=== PATIENT | female | born 1960 | race Caucasian/White ===

== ENCOUNTER 2020-04-20 10:29 | Outpatient (CLI) | payer OTHER, SELFPAY ==
[2020-04-20 10:43] LABS: Hematocrit 39.1 % (37.0-47.0); Mean Corpuscular HGB Conc 33.2 g/dl (32-36); Mean Corpuscular Hemoglobin 31.3 pg (26-34); Mean Corpuscular Volume 94.2 fl (80-100); Mean Platelet Volume 8.9 fl (7.4-10.4); Platelet Count Result 241 k/mm3 (150-375); Red Blood Count 4.15 M/mm3 (4.2-5.4); Red Cell Distribution Width 12.8 % (11.5-14.5); White Blood Count 4.7 K/mm3 (4.5-10.0)
[2020-04-20 10:55] LABS: Alanine Aminotransferase 15 U/L (4-35); Albumin Level 4.2 g/dL (3.5-5.1); Alkaline Phosphatase 59 U/L (38-126); Anion Gap 5 mmol/L (8-16); Aspartate Amino Transferase 30 U/L (14-36); Bilirubin,Total 0.9 mg/dL (0.2-1.3); Blood Urea Nitrogen 21 mg/dL (7-17); Calcium 9.3 mg/dL (8.4-10.2); Carbon Dioxide 31 mmol/L (22-30); Chloride 103 mmol/L (98-107); Cholesterol 219 mg/dL (0-200); Estimated Glomerular Filt Rate > 60; Glucose 109 mg/dL (65-105); HDL Direct 72 mg/dL; Sodium 139 mmol/L (137-145); Triglycerides 127 mg/dL (<150)
[2020-04-20 11:06] LABS: LDL Cholesterol Direct 117 mg/dL
[2020-04-20 11:18] LABS: Hemoglobin A1C 5.3 % (<5.7)
== END 2020-04-20 10:30 | disposition home or self-care (01) ==
PROVIDERS: PCP Family Medicine; Visit Provider Family Medicine
DX: K27.9 Peptic ulcer, site unspecified, unspecified as acute or chronic, without hemorrhage or perforation (principal); R73.03 Prediabetes; Z51.81 Encounter for therapeutic drug level monitoring; Z79.899 Other long term (current) drug therapy
CPT/HCPCS: 36415; 80053; 80061; 83036; 85027

== ENCOUNTER 2020-12-04 13:50 | Outpatient (CLI) | payer OTHER, SELFPAY ==
--- NOTE | ~2020-12-04 | MM_ITS ---
EXAMINATION: MM screening talia BI w chandni HISTORY: Screening mammogram, family history of breast cancer in her mother. TECHNIQUE: Craniocaudal and mediolateral oblique 3-D tomosynthesis images were obtained and synthetic 2-D images were generated. CAD analysis was submitted and interpreted. COMPARISON: 06/23/2016 BREAST PARENCHYMAL COMPOSITION: There are scattered areas of fibroglandular density. FINDINGS: There is no evidence of suspicious mass, calcification, or architectural distortion to sugg est malignancy in either breast. There has been no suspicious interval change. IMPRESSION: 1. No mammographic evidence of malignancy. 2. Recommend routine screening mammography in one year. BI-RADS Category 1: Negative Reviewed, dictated and finalized at location A.
== END 2020-12-04 13:51 | disposition home or self-care (01) ==
PROVIDERS: PCP Family Medicine; Visit Provider Family Medicine
DX: Z12.31 Encounter for screening mammogram for malignant neoplasm of breast (principal)
CPT/HCPCS: 77063; 77067

== ENCOUNTER 2021-03-12 01:09 | Day surgery (SDC) | payer OTHER, SELFPAY ==
[2021-02-26 14:26] VITALS: BMI 27.5
--- NOTE | 2021-03-11 09:51 | WPDANESEPPF ---
Anes - Initial Pre Proc Eval Procedure: Operation Date: 03/12/21 11:15 Proposed Procedures p Esophagogastroduodenoscopy - Raj Ortega MD Date/Time: 03/11/21 09:51 Surgeon: Raj Ortega MD Pre Op Diagnosis: gastric outlet obstruction, epigastric pain Patient Data Age: 61 Gender: F Height: 1.65 m Weight: 75 kg Allergies Allergy/AdvReac Type Severity Reaction Status Date / Time Penicillins Allergy Unknown Skin Verified 03/12/21 10: Reaction sulfamethizole Allergy Unknown Skin Verified 03/12/21 10: Reaction tomato Allergy Unknown Skin Verified 03/12/21 10: Reaction trimethoprim Allergy Unknown rash Verified 03/12/21 10:21 lisinopril AdvReac Mild cough Verified 03/12/21 10:21 Home Medications Medication Instructions Recorded Confirmed Type cetirizine 10 mg tablet 10 mg PO DAILY 04/24/19 03/12/21 History telmisartan 80 mg tablet 80 mg PO DAILY #90 tablet 09/30/20 03/12/21 Rx esomeprazole magnesium 40 mg 40 mg PO DAILY #90 cap 10/23/20 03/12/21 Rx capsule,delayed release sucralfate 1 gram tablet 1 g PO Q4H PRN #90 tablet 10/23/20 03/12/21 Rx naltrexone 50 mg tablet See Rx Instructions .ROUTE 12/02/20 03/12/21 Rx .COMPLEX #90 tablet ondansetron HCl 4 mg tablet 4 mg PO Q8H PRN #30 tablet 02/26/21 02/26/21 Rx sertraline 25 mg PO DAILY 02/26/21 03/12/21 History Patient hx anesthesia problems: none Family hx anesthesia problems: none Results Review: All pre-operative results and documents have been reviewed as part of the pre-operative evaluation. [facility] Past Medical History Medical History (Updated 03/11/21 @ 09:51 by Josh Robles DO) Alcoholism and drug addiction in family Anxiety Breast cancer screening Gastric polyp Hypertension Obesity (BMI 30.0-34.9) Vasomotor rhinitis Surgical History Surgical History (Updated 03/11/21 @ 09:51 by Josh Robles DO) History of appendectomy History of cholecystectomy Family History Family History Sibling Family history of migraine headaches Family history of rheumatoid arthritis Acute myocardial infarction Mother Cerebrovascular accident Family history of Alzheimer's disease Family history of malignant neoplasm of breast in first degree relative Father Family history of lung disease Family history of heart disease in male family member before age 55 Grandparent Family history of lung cancer Family history of malignant neoplasm of breast Other Family history of allergic disorder Family history of cardiovascular disease Family history of kidney disease Social History Social History (Updated 02/21/21 @ 10:43 by Romelia Buckner [facility]) Smoking packs per day: 0.5 Smoking cigarettes per day: 10.0 Years smoked: 1 Smoking pack-years: 0.50 Smoking status: Former smoker Smoking end date: 02/26/86 Alcohol intake: current Living arrangements: with family Spiritual care concerns: No Anes - Eval Final PreProcedure Day of Procedure 03/11/21 09:51 Patient weight: overweight Heart: regular rate and rhythm Lungs: clear to auscultation and normal air movement Airway: Mallampati scale class II Neurological: alert and oriented Last oral intake: >/= 8 hours ASA classification: II Emergent: no Anesthetic plan: proceed Anesthesia type and monitoring: general GIVS and standard monitoring Results Review: All pre-operative results and documents have been reviewed as part of the pre-operative evaluation. Informed Consent: The patient's anesthetic plan and its attendant risks and benefits were discussed with the patient/family/POA. Questions were solicited and answers provided to the satisfaction of the patient/family/POA.
[2021-03-12 10:22] VITALS: BP 131/74; PULSE 52; RESP 18; TEMP 36.6; O2SAT 100
[2021-03-12] MEDS: LACTATED RINGERS 1,000 ML 150 ML IV CONT (10:32)
[2021-03-12] MEDS: ONDANSETRON INJ 4 MG/2 ML VIAL IV PUSH (10:38)
--- NOTE | 2021-03-12 10:41 | PM.HPGS ---
History of Present Illness History of Present Illness Consent: Risks, benefits, and alternatives have been discussed and questions answered. Patient agrees to proceed with procedure. Chief complaint: gastric outlet obstruction, epigastric pain Narrative: Brisa Post is a 61 year old female with persistent vomiting daily for the past 2 months. This began when she was out Anusol and thought that she had gotten dehydrated. Her symptoms however have persisted. She has lost about 10 lb during this period of time. She denies dysphagia Review of Systems Review of Systems: All systems reviewed & are unremarkable except as noted in HPI and below PMFSH Past Medical History Medical History Alcoholism and drug addiction in family Anxiety Breast cancer screening Gastric polyp Hypertension Obesity (BMI 30.0-34.9) Vasomotor rhinitis Surgical History Surgical History History of appendectomy History of cholecystectomy Family History Family History Sibling Family history of migraine headaches Family history of rheumatoid arthritis Acute myocardial infarction Mother Cerebrovascular accident Family history of Alzheimer's disease Family history of malignant neoplasm of breast in first degree relative Father Family history of lung disease Family history of heart disease in male family member before age 55 Grandparent Family history of lung cancer Family history of malignant neoplasm of breast Other Family history of allergic disorder Family history of cardiovascular disease Family history of kidney disease Social History Social History Smoking packs per day: 0.5 Smoking cigarettes per day: 10.0 Years smoked: 1 Smoking pack-years: 0.50 Smoking status: Former smoker Smoking end date: 02/26/86 Alcohol intake: current Living arrangements: with family Spiritual care concerns: No Meds Home Medications and Allergies Home Medications Medication Instructions Recorded Confirmed Type cetirizine 10 mg tablet 10 mg PO DAILY 04/24/19 03/12/21 History telmisartan 80 mg tablet 80 mg PO DAILY #90 tablet 09/30/20 03/12/21 Rx esomeprazole magnesium 40 mg 40 mg PO DAILY #90 cap 10/23/20 03/12/21 Rx capsule,delayed release sucralfate 1 gram tablet 1 g PO Q4H PRN #90 tablet 10/23/20 03/12/21 Rx naltrexone 50 mg tablet See Rx Instructions .ROUTE 12/02/20 03/12/21 Rx .COMPLEX #90 tablet ondansetron HCl 4 mg tablet 4 mg PO Q8H PRN #30 tablet 02/26/21 02/26/21 Rx sertraline 25 mg PO DAILY 02/26/21 03/12/21 History Allergies Allergy/AdvReac Type Severity Reaction Status Date / Time Penicillins Allergy Unknown Skin Verified 03/12/21 10:21 Reaction sulfamethizole Allergy Unknown Skin Verified 03/12/21 10:21 Reaction tomato Allergy Unknown Skin Verified 03/12/21 10:21 Reaction trimethoprim Allergy Unknown rash Verified 03/12/21 10:21 lisinopril AdvReac Mild cough Verified 03/12/21 10:21 Vital Signs Vital Signs - 24 hr 03/12/21 10:22 Temperature 36.6 C Pulse Rate 52 L Respiratory Rate 18 Blood Pressure 131/74 Pulse Oximetry 100 Exam Const: General: alert Orientation/consciousness: patient oriented x3 Resp: Auscultation: clear to auscultation bilaterally Cardio: Rhythm: regular rhythm GI: GI Palp: Yes Soft to palpation and No Tenderness to palpation present (GI) Neuro: General: patient oriented x3 Assessment and Plan Assessment and plan (1) Nausea and vomiting: Code(s): R11.2 - Nausea with vomiting, unspecified Status: Acute Assessment and Plan: EGD with possible biopsy or dilatation or cautery.
[2021-03-12 11:28] VITALS: BP 102/59; PULSE 51; RESP 16; O2SAT 100
[2021-03-12 11:38] VITALS: BP 107/59; PULSE 49; RESP 14; O2SAT 100
[2021-03-12 11:48] VITALS: BP 129/73; PULSE 47; RESP 15; O2SAT 100
[2021-03-12 11:58] VITALS: BP 140/80; PULSE 45; RESP 15; O2SAT 100
[2021-03-12] MEDS: diphenhydrAMINE HCl INJ 50 MG/ML VIAL 25 MG IV PUSH (12:03)
--- NOTE | 2021-03-12 12:04 | SUR.PHASEII ---
pt become very nauseated and vomited x 3. states this is how she feels at home sometimes. co some abd discomfort, states similiar to the way she feels at home. dr lee ann willingham aware, benadryl [address] anderson ordered 25 mg of fentanyl to help with discomfort but pt refused. olga orozco, ordered pt to have famotidine [address] nance confirmed orders.
[2021-03-12 12:08] VITALS: BP 128/76; PULSE 46; RESP 22; O2SAT 100
[2021-03-12] MEDS: SCOPOLAMINE 1.5 MG PATCH TRANSDERM (12:20)
[2021-03-12] MEDS: FAMOTIDINE 20 MG/2 ML VIAL IV PUSH (12:20)
--- NOTE | 2021-03-12 12:43 | SUR.OPER ---
1125: DR MULLIGAN MADE AWARE ONLY 2 POLYPS RETRIEVED AND 1 UNRETRIEVED. NO NEW ORDERS.
== END 2021-03-12 12:34 | disposition home or self-care (01) ==
PROVIDERS: PCP Family Medicine; Visit Provider Internal Medicine Gastroenterology
PROC: 0DJ08ZZ Inspection of Upper Intestinal Tract, Via Natural or Artificial Opening Endoscopic (ICD-10-PCS; CPT 43235; principal; 2021-03-12 11:15)
DX: K21.9 Gastro-esophageal reflux disease without esophagitis (principal); K31.7 Polyp of stomach and duodenum; I10 Essential (primary) hypertension; F41.9 Anxiety disorder, unspecified; Z87.891 Personal history of nicotine dependence
CPT/HCPCS: 43239; 43251; 87081; 88305; A9270; J1200; J1630; J2405; J2550; J2704; J7120

== ENCOUNTER 2021-03-21 13:31 | Outpatient (CLI) | payer OTHER, SELFPAY ==
--- NOTE | ~2021-03-21 | CT_ITS ---
EXAMINATION: CT abdomen pelvis w con INDICATION: Nausea and vomiting, weight loss TECHNIQUE: Computed tomographic images of the abdomen and pelvis were obtained after the administrati on of 100 cc of Omnipaque 350 intravenous contrast. The dose-length product (DLP) was 567.55 mGy-cm. Automated exposure control and iterative reconstruction technique were employed. COMPARISON: 05/12/2004 FINDINGS: Minimal dependent atelectasis is present in the lung bases. The heart size is normal. A chr onic 4 mm nodule of the right lower lobe is consistent with old granulomatous disease. The gallbladde r is surgically absent. There is mild enlargement of the common bile duct and central intrahepatic du cts which is likely due to post cholecystectomy state. The liver, spleen, pancreas, and adrenal gland s are normal. A surgical clip is present in the stomach at the site of prior biopsy. There is a 1.9 c m cyst of the left kidney upper pole. The right kidney is unremarkable. There is calcified atheroscle rosis of the aorta and many of the other arteries. No pathologically enlarged abdominal or pelvic lym ph nodes are identified. The endometrial thickness measures up to 10 mm which can be normal and an as ymptomatic postmenopausal patient. There is mild lumbar spondylosis. There is a tiny fat-containing u mbilical hernia. There is no free intraperitoneal gas or evidence of bowel obstruction. IMPRESSION: 1. No CT correlate for the patient's symptoms. Reviewed, dictated and finalized at location A.
[2021-03-21 13:51] LABS: Estimated Glomerular Filt Rate > 60
== END 2021-03-21 13:32 | disposition home or self-care (01) ==
PROVIDERS: PCP Family Medicine; Visit Provider Internal Medicine Gastroenterology
DX: R10.9 Unspecified abdominal pain (principal); R11.0 Nausea; R11.10 Vomiting, unspecified
CPT/HCPCS: 74177; Q9967

== ENCOUNTER 2022-12-17 08:15 | Emergency (ER) | payer OTHER, SELFPAY ==
[2022-12-17 08:24] VITALS: BP 108/77; PULSE 68; RESP 16; TEMP 36.1; O2SAT 99
[2022-12-17 08:25] VITALS: BP 108/77; PULSE 68; RESP 16; TEMP 36.1; O2SAT 99
--- NOTE | 2022-12-17 08:39 | ED.EYEPROB ---
HPI - Eye Problem General Chief complaint: Eye Problems Stated complaint: EYE REDNESS Time Seen by Provider: 12/17/22 08:40 Source: patient Mode of arrival: ambulatory Limitations: no limitations History of Present Illness HPI Narrative: 62-year-old female presents complaint of redness to right eye for 2 days. No vision changes. Patient wears daily contacts. Denies trauma or foreign body. Also reports sinus congestion, pressure for 10 days. Concerned she has bacterial conjunctivitis from sinus infection. Afebrile. All systems reviewed and negative except as noted above. Related Data Home Medications Medication Instructions Recorded Confirmed cetirizine 10 mg tablet (Zyrtec) 10 mg PO DAILY 04/24/19 12/17/22 sertraline 50 mg tablet 50 mg PO ONCE 04/24/22 12/17/22 Allergies Allergy/AdvReac Type Severity Reaction Status Date / Time Penicillins Allergy Unknown Skin Verified 12/17/22 08:24 Reaction sulfamethizole Allergy Unknown Skin Verified 12/17/22 08:24 Reaction tomato Allergy Unknown Skin Verified 12/17/22 08:24 Reaction trimethoprim Allergy Unknown rash Verified 12/17/22 08:24 metformin AdvReac Intermediate Abdominal Verified 12/17/22 08:24 Pain lisinopril AdvReac Mild cough Verified 12/17/22 08:24 Review of Systems Review of Systems: CONSTITUTIONAL: Denies fever, chills, or sweats. EYES: Reports right high redness, sticky discharge. ENT: reports rhinorrhea, congestion, sinus pressure. Denies sore throat, or otalgia. CARDIOVASCULAR: Denies chest pain, palpitations, or edema. RESPIRATORY: Denies cough or dyspnea. GASTROINTESTINAL: Denies abdominal pain, nausea, vomiting, or diarrhea. GENITOURINARY: Denies dysuria or hematuria. SKIN: Denies rash or itching. MUSCULOSKELETAL: Denies back pain, joint pain, or myalgia. NEUROLOGIC: Denies headache, numbness, or weakness. PSYCHIATRIC: Denies anxiety or depression. All other systems reviewed are negative, except as documented in HPI. [facility] Past Medical History Medical History Alcoholism and drug addiction in family Anxiety Breast cancer screening Gastric polyp Hypertension Obesity (BMI 30.0-34.9) Vasomotor rhinitis Surgical History Surgical History History of appendectomy History of cholecystectomy Family History Family History Sibling Family history of migraine headaches Family history of rheumatoid arthritis Acute myocardial infarction Mother Cerebrovascular accident Family history of Alzheimer's disease Family history of malignant neoplasm of breast in first degree relative Father Family history of lung disease Family history of heart disease in male family member before age 55 Grandparent Family history of lung cancer Family history of malignant neoplasm of breast Other Family history of allergic disorder Family history of cardiovascular disease Family history of kidney disease Social History Social History Smoking packs per day: 0.5 Smoking cigarettes per day: 10.0 Years smoked: 1 Smoking pack-years: 0.50 Smoking status: Former smoker Smoking end date: 02/26/86 Alcohol intake: current Lack of Transportation: No Lack of Food: Never True Current Housing: I Have Housing Concerned About Future Housing: No Difficulty Paying Gas/Electric Bills: No Difficulty Paying for Meds: No Currently Unemployed: Decline to Answer Education: Decline to Answer Difficulty w/ Childcare or Family Care: Decline to Answer Living arrangements: with family Spiritual care concerns: No Comments At time of signature, agree with nursing past medical, surgical, social and family history. There is no relevant family history pertinent to the presenting complaint. Exam Narrative: GEN
== END 2022-12-17 08:59 | disposition home or self-care (01) ==
PROVIDERS: Emergency Provider Nurse Practitioner Family; PCP Family Medicine
DX: H10.31 Unspecified acute conjunctivitis, right eye (principal); J01.90 Acute sinusitis, unspecified; Z87.891 Personal history of nicotine dependence; I10 Essential (primary) hypertension; F41.9 Anxiety disorder, unspecified; E66.9 Obesity, unspecified; Z68.27 Body mass index [BMI] 27.0-27.9, adult
CPT/HCPCS: 99213; A9270; G0463

== ENCOUNTER 2024-01-15 07:34 | Outpatient (CLI) | payer OTHER, MEDICARE, SELFPAY ==
--- NOTE | ~2024-01-15 | MM_ITS ---
EXAMINATION: MM screening talia BI w chandni HISTORY: Screening TECHNIQUE: Craniocaudal and mediolateral oblique 3-D tomosynthesis images were obtained and synthetic 2-D images were generated. CAD analysis was submitted and interpreted. COMPARISON: Comparison to multiple prior studies sequentially, with oldest reviewed study dated 06/23. BREAST PARENCHYMAL COMPOSITION: Dense: The breasts are heterogeneously dense, which may obscure small masses FINDINGS: The left breast is stable without evidence for malignancy. There are asymmetries centered i n the mid outer aspect of the right breast. The left breast is stable without evidence for malignancy . IMPRESSION: 1. Right breast asymmetries. 2. Additional mammographic views and possible breast ultrasound are recommended. BI-RADS Category 0: Incomplete: Needs additional imaging evaluation. Reviewed, dictated and finalized at location B. IMPRESSION: 1. Right breast asymmetries. 2. Additional mammographic views and possible breast ultrasound are recommended . BI-RADS Category 0: Incomplete: Needs additional imaging evaluation.
--- NOTE | ~2024-01-15 | DEXA_ITS ---
Bone Density Report Name: SONIYA PERDUE Age: 64 Sex: Female Ethnicity: White Date of : 1960 Indication: postmenopausal; screening for osteoporosis; parental hip fracture; Referring Provider: AYDEE BEY Study: Bone densitometry was performed. Exam Date: January 15, 2024 Accession number: [id number] Bone Density: Region BMD T-score Z-score Classification AP Spine(L1-L4) 1.040 -0.1 1.7 Normal Femoral Neck (Left) 0.727 -1.1 0.4 Osteopenia Total Hip (Left) 0.936 0.0 1.2 Normal Femoral Neck (Right) 0.740 -1.0 0.5 Normal Total Hip (Right) 0.967 0.2 1.4 Normal Total Hip Mean 0.952 0.1 1.3 Normal World Health Organization criteria for BMD impression classify patients as: Normal (T-score at or above -1.0), Osteopenia (T-score between -1.0 and -2.5), or Osteoporosis (T-score at or below -2.5). 10-year Fracture Risk(1): Major Osteoporotic Fracture 16% Hip Fracture 0.7% Reported Risk Factors: [place] (), Neck BMD=0.727, BMI=27.9, parental fracture (1) FRAX(R) Version 3.08. Fracture probability calculated for an untreated patient. Fracture probability may be lower if the patient has received treatment. Previous Exams: Region Exam Age BMD T-score BMD Change BMD Change Date g/cm2 vs Baseline vs Previous Total Hip(Left) 01/15/2024 64 0.936 0.0 0.014 (1.5%) 0.014 (1.5%) 06/23/2016 56 0.923 -0.2 Total Hip(Right) 01/15/2024 64 0.967 0.2 0.061 (6.8%)* 0.061 (6.8%)* 06/23/2016 56 0.905 -0.3 *Denotes significance at 95% confidence level, LSC for Total Hip = 0.027 g/cm2 Clinical Information Provided by Patient: Parent has had a hip fracture Patient maximum height was 66 Menopause Age: 49 No regular weight bearing exercise Drinks caffeinated beverages Onset of menses at age 12 Number of children 3 Impression: The patient has low bone mass, based on the Left Femoral Neck T-score. The patient has an estimated ten-year risk of hip fracture of 0.7% and an estimated ten-year risk of major fracture of 16%, based on the WHO FRAX algorithm. The patient has risk factors, including: parental hip fracture. No significant bone loss was observed. Discussion: BONE DENSITY IS LOW AT ONE OR MORE SKELETAL SITES. This patient's lowest T-score is low at one or more skeletal sites. It meets the World Health Organization's (WHO) criteria for ?low bone mass? (T-score between -1.0 and -2.5). The patient's 10-year risk of fracture as calculated
== END 2024-01-15 07:35 | disposition home or self-care (01) ==
LOC: ANHIMG 07:37
PROVIDERS: PCP Family Medicine; Visit Provider Family Medicine
DX: Z12.31 Encounter for screening mammogram for malignant neoplasm of breast (principal); Z78.0 Asymptomatic menopausal state; R92.8 Other abnormal and inconclusive findings on diagnostic imaging of breast; M85.852 Other specified disorders of bone density and structure, left thigh
CPT/HCPCS: 77063; 77067; 77080

== ENCOUNTER 2024-01-20 11:09 | Outpatient (CLI) | payer OTHER, MEDICARE, SELFPAY ==
--- NOTE | ~2024-01-20 | MMUS_ITS ---
EXAMINATION: MM diagnostic talia RT w chandni, US breast RT complete HISTORY: Follow-up right breast asymmetry TECHNIQUE: Additional 3-D tomosynthesis images of the right breast were performed and synthetic 2-D i mages were generated. CAD analysis was submitted and interpreted. High resolution complete right jyoti st ultrasound was performed. COMPARISON: Comparison to multiple prior studies sequentially, with oldest reviewed study dated 06/23. BREAST PARENCHYMAL COMPOSITION: Dense: The breasts are heterogeneously dense, which may obscure small masses FINDINGS: MAMMOGRAPHIC FINDINGS: The right breast is stable. No suspicious masses, calcifications or architectural distortion in the r ight breast to suggest malignancy. ULTRASOUND: Complete US of all 4 quadrants of the right normal heterogeneous echotexture without focal solid or c ystic mass. Breast/s and retroareolar region was reviewed. IMPRESSION: 1. No evidence for malignancy in the right breast. 2. Routine yearly screening mammogram and regular clinical breast examination are recommended. BI-RADS Category 1: Negative Reviewed, dictated and finalized at location B. IMPRESSION: 1. No evidence for malignancy in the right breast. 2. Routine yearly screening mammogram and regular clinical breast examination a re recommended. BI-RADS Category 1: Negative
== END 2024-01-20 11:10 | disposition home or self-care (01) ==
LOC: ANHIMG 11:10
PROVIDERS: PCP Family Medicine; Visit Provider Family Medicine
DX: R92.8 Other abnormal and inconclusive findings on diagnostic imaging of breast (principal)
CPT/HCPCS: 76641; 77061; 77065; G0279

== ENCOUNTER 2024-09-29 08:33 | Outpatient (CLI) | payer OTHER, MEDICARE, SELFPAY ==
--- OUTSIDE RECORDS SUMMARY | 2024-09-29 08:37 | XMS_ITS | Clinical Summary ---
Author Organization [facility] [address] [place] [address] [place] [id number] Care Team Providers Care Retail Advertising Executive Name Role Phone Glenn Gunn MD Primary Care Provider [phone] Allergies Active Allergy Reactions Criticality Noted Date Comments Carrot Rash Medium 11/15/2019 Penicillin G Rash Medium 11/02/2018 Tomato Rash Medium 11/15/2019 Medications sertraline (ZOLOFT) 50 mg tablet Take 50 mg by mouth daily Active omeprazole (PriLOSEC) 20 mg capsule Take 20 mg by mouth daily Active cetirizine (ZyrTEC) 10 mg tablet Take 10 mg by mouth daily Active telmisartan (MICARDIS) 80 mg tablet Take 80 mg by mouth daily 10/31/2019 Active Active Problems No known active problems Surgical History Surgery Date Site/Laterality Comments APPENDECTOMY CHOLECYSTECTOMY Medical History Medical History Date Comments Peptic ulceration Anemia Deep vein thrombosis (HCC) Family History Medical History Relation Name Comments Cancer Other Heart disease Other Stroke Other Relation Name Status Comments Other Social History Tobacco Use Types Packs/Day Years Used Date Smoking Tobacco: Never Smokeless Tobacco: Never Personal Safety Answer Date Recorded Getting School Help Needed Not on file 08/06 Comments Unknown Sex and Gender Information Value Date Recorded Sex Assigned at Not on file 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 Gender Identity Not on file Sexual Orientation Not on file Obstetrics History Last Filed Vital Signs Vital Sign Reading Time Taken Comments Blood Pressure 159/89 11/02/2018 11:26 AM CDT Pulse 72 11/02/2018 11:26 AM CDT Temperature - - Respiratory Rate - - Oxygen Saturation - - Inhaled Oxygen Concentration - - Weight 78 kg (172 lb) 11/02/2018 11:26 AM CDT Height 165.1 cm (5' 5 ) 11/02/2018 11:26 AM CDT Body Mass Index 28.62 11/02/2018 11:26 AM CDT Plan of Treatment Not on file Insurance [facility] CHO[facility] PL[facility] MEDICARE MEDICARE [facility] Care Teams Retail Advertising Executive Relationship Specialty Start Date End Date Glenn Gunn MD PCP - General Family Medicine 10/21/18
--- OUTSIDE RECORDS SUMMARY | 2024-09-29 08:37 | XMS_ITS | Referral Summary ---
Author Organization [facility] [address] [place] [address] [place] [id number] Care Team Providers Care Lamp Shade Assembler Name Role Phone Glenn Gunn MD Primary Care Provider [phone] Allergies Active Allergy Reactions Criticality Noted Date [...] Active Active Problems No known active problems Social History Tobacco Use Types Packs/Day Years Used Date Smoking Tobacco: Never Smokeless Tobacco: Never Personal Safety Answer Date Recorded Getting School Help Needed Not on file 08/06 Comments Unknown Sex and Gender Information Value Date Recorded Sex Assigned at Not on file 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 Gender Identity Not on file Sexual Orientation Not on file Last Filed Vital Signs Vital Sign Reading [...] Plan of Treatment Not on file Insurance Member Subscriber Plan / Payer (Ef fective 2016-Present) Name:Brisa Perdue Relation to Subscriber:Self Name:Brisa Perdue Payer ID:[id number] (NAIC) Type:[facility] H[facility]/PPO Address: [place] [phone] [facility] [place] [address] [place] [phone] MEDICARE MEDICARE [facility] Care Teams Lamp Shade Assembler Relationship Specialty Start Date End Date Glenn Gunn MD PCP - General Family Medicine 10/21/18
[2024-09-29 19:51] LABS: Hemoglobin A1C 5.5 % (<5.7)
[2024-09-29 20:23] LABS: Hematocrit 35.4 % (37.0-47.0); Hemoglobin 11.4 g/dL (12.0-15.0); Immature Granulocyte Absolute 0.01 K/mm3 (0.00-0.031); Immature Granulocyte Percent A 0.2 % (0-0.5); Lymphocytes Absolute Auto 1.21 K/mm3 (0.9-3.2); Lymphocytes Percent Auto 29.4 % (18.3-44.2); Mean Corpuscular HGB Conc 32.2 g/dl (32-36); Mean Corpuscular Hemoglobin 29.3 pg (26-34); Mean Platelet Volume 9.9 fl (7.4-10.4); Monocytes Absolute Auto 0.3 K/mm3 (0.1-0.6); Monocytes Percent Auto 7.8 % (2.6-8.5); Neutrophils Absolute Auto 2.5 K/mm3 (1.3-6.7); Neutrophils Percent Auto 61.6 % (45.5-73.1); Platelet Count Result 257 k/mm3 (150-375); Red Blood Count 3.89 M/mm3 (4.2-5.4); Red Cell Distribution Width 12.9 % (11.5-14.5); White Blood Count 4.1 K/mm3 (4.5-10.0)
[2024-09-29 20:27] LABS: Hepatitis C Virus Antibody Negative (Negative)
[2024-09-29 20:33] LABS: Alanine Aminotransferase 19 U/L (6-35); Albumin Level 4.5 g/dL (3.5-5.1); Alkaline Phosphatase 64 U/L (38-126); Anion Gap 9 mmol/L (4-12); Aspartate Amino Transferase 27 U/L (14-36); Bilirubin,Total 0.5 mg/dL (0.2-1.3); Blood Urea Nitrogen 18 mg/dL (7-17); Calcium 9.4 mg/dL (8.4-10.2); Carbon Dioxide 27 mmol/L (22-30); Chloride 104 mmol/L (98-107); Cholesterol 259 mg/dL (0-200); Estimated Glomerular Filt Rate > 60; Glucose 92 mg/dL (65-110); HDL Direct 67 mg/dL; Potassium 4.7 mmol/L (3.4-5.0); Sodium 140 mmol/L (137-145); Triglycerides 106 mg/dL (<150)
[2024-09-29 20:45] LABS: LDL Cholesterol Direct 125 mg/dL
== END 2024-09-29 08:34 | disposition home or self-care (01) ==
LOC: ANHGOSHLAB 08:35
PROVIDERS: PCP Family Medicine; Visit Provider Nurse Practitioner Family
DX: R73.03 Prediabetes (principal); Z11.59 Encounter for screening for other viral diseases; I10 Essential (primary) hypertension; E66.9 Obesity, unspecified; E78.5 Hyperlipidemia, unspecified
CPT/HCPCS: 36415; 80053; 80061; 83036; 84443; 85025; 86803

== ENCOUNTER 2024-11-20 14:54 | Outpatient (CLI) | payer OTHER, MEDICARE, SELFPAY ==
--- NOTE | ~2024-11-20 | XR_ITS ---
Left Shoulder Technique: AP and scapular Y views were obtained. Clinical History: Pain Findings: No fracture or dislocation is seen. Osseous alignment is anatomic. The glenohumeral and acr omioclavicular joint spaces are preserved. Soft tissues are unremarkable. Impression: Unremarkable left shoulder radiographs. Reviewed, dictated and finalized at [facility]. Impression: Unremarkable left shoulder radiographs.
== END 2024-11-20 14:55 | disposition home or self-care (01) ==
LOC: GOSHIMG 14:55
PROVIDERS: PCP Student in an Organized Health Care Education/Training Program; Visit Provider Student in an Organized Health Care Education/Training Program
DX: M25.512 Pain in left shoulder (principal)
CPT/HCPCS: 73030

== ENCOUNTER 2024-12-14 13:24 | Outpatient (CLI) | payer OTHER, MEDICARE, SELFPAY ==
--- NOTE | ~2024-12-14 | MR_ITS ---
EXAMINATION: MR shoulder LT wo con DATE: 12/14/2024 13:49 INDICATION: Pain in left shoulder . TECHNIQUE: Magnetic resonance imaging (MRI) of the left shoulder was performed without intravenous co ntrast. Sequences included axial PD-weighted FS FSE, coronal oblique PD-weighted FS FSE and T2-weight ed FS FSE, and sagittal oblique T2-weighted FS FSE and T1-weighted FSE. COMPARISON: X-ray left shoulder 11/20/2024. FINDINGS: Coracoacromial arch: Minimal anterolateral downsloping of the type I acromion. Minimal acromial tip enthesopathy. No signi ficant inferior AC joint osteophytosis. Rotator cuff: 9 mm rim rent tear at the insertion of the supraspinatus. Mild thickening and abnormal signal in the critical zone of the supraspinatus. The infraspinous, teres minor, and subscapularis are intact. Biceps tendon and glenoid labrum: Small sublabral recess. Subacromial foramen/[place] complex. Long head of biceps tendon is intact. Ant eroinferior capsular thickening. Mild induration of subcoracoid fat. Fluid: Small volume subacromial subdeltoid fluid with bursal sided fraying. Bones/cartilage: Mild AC joint hypertrophy. Mild cartilage thinning of the glenoid. IMPRESSION: Small rim rent type tear of the supraspinatus insertion, in a background of distal tendinopathy. Mild subacromial subdeltoid bursitis, with bursal sided fraying. MR findings that may represent mild adhesive capsulitis in the appropriate clinical context. Mild polyarticular osteoarthritis of the shoulder. Reviewed, dictated and finalized at location [facility]. IMPRESSION: Small rim rent type tear of the supraspinatus insertion, in a background of dis rip tendinopathy. Mild subacromial subdeltoid bursitis, with bursal sided fraying. MR findings that may represent mild adhesive capsulitis in the appropriate clin ical context. Mild polyarticular osteoarthritis of the shoulder.
== END 2024-12-14 13:25 | disposition home or self-care (01) ==
LOC: GOSHIMG 13:25
PROVIDERS: PCP Family Medicine; Visit Provider Student in an Organized Health Care Education/Training Program
DX: S46.812A Strain of other muscles, fascia and tendons at shoulder and upper arm level, left arm, initial encounter (principal); X58.XXXA Exposure to other specified factors, initial encounter; M75.92 Shoulder lesion, unspecified, left shoulder; M75.52 Bursitis of left shoulder; M19.012 Primary osteoarthritis, left shoulder
CPT/HCPCS: 73221